=== PATIENT | female | born 1960 | race African-American/Black ===

== ENCOUNTER → 2021-05-29 | Outpatient (CLI) | payer OTHER ==
[2014-05-23 10:59] VITALS: BP 114/71
[~2021-05-29] MED LIST: METF500T16 PO; POLY500P14 MC; SIMV10TA15 PO; VALS1TAB3 PO
--- NOTE | 2021-05-29 10:05 | RAD ---
Examination: MRI of the right knee without contrast HISTORY: History of medial joint pain COMPARISON: None available TECHNIQUE: Multiplanar, multisequence MR imaging of the right knee without contrast FINDINGS: The anterior cruciate ligament, posterior cruciate ligament appears intact. The the medial meniscus a ppears intact. There is subtle blunting of the body of the lateral meniscus likely small degenerative radial tear. The medial collateral ligament is intact. Lateral collateral ligamentous complex includ ing the fibular collateral ligament, biceps femoris tendon, popliteus tendon appear intact There is mild superficial fraying of cartilage identified in the medial, lateral compartments.There i s deep fissuring of cartilage identified in the patellofemoral compartment. The medial, lateral retin aculum appears intact. The extensor mechanism appears intact. There is mild increased T2 signal ident ified in the Hoffa's fat pad deep to infrapatellar tendon likely secondary to impingement. Moderate j oint space loss identified in the medial, lateral and patellofemoral compartments. IMPRESSION: 1. Subtle blunting of the body of the lateral meniscus likely small degenerative radial tear. 2. Mild increased T2 signal identified in the Hoffa's fat pad deep to infrapatellar tendon likely se condary to impingement. 3. Grade II chondromalacia patellofemoral compartment. Grade I chondromalacia medial, lateral compar tments. Moderate tricompartmental degenerative disease. Electronically signed by: Cuco Harrison MD (05/29/2021 10:03 AM) [id number]
== END ==
LOC: MRI 09:11
PROVIDERS: ATTEND Orthopaedic Surgery
DX: M17.11 Unilateral primary osteoarthritis, right knee (principal); M22.41 Chondromalacia patellae, right knee; Z68.27 Body mass index [BMI] 27.0-27.9, adult
CPT/HCPCS: 73721

== ENCOUNTER → 2021-07-14 | Day surgery (SDC) | payer OTHER ==
[~2021-07-14] VITALS: Ht 160 cm; Wt 72.0 kg
[~2021-07-14] MED LIST changes: +ATOR20TA58 PO; +BUPIVACAINE MPF 0.5% 30 ML VIAL. ONE; +DEXAMETHASONE SOD PHOS 4 MG/ML VIAL ONE; +DEXTROSE 50% 25 GM / 50ML DISP.SYRIN. IV ONE; +DEXTROSE 50% 25 GM / 50ML DISP.SYRIN. IV PRN; +GLYCOPYRROLATE 1 MG/5 ML VIAL. ONE; +HYDR-2761 PO; +HYDROcodone/APAP 5/325MG 1 TAB TABLET ONE; +HYDROcodone/APAP 5/325MG 1 TAB TABLET PO ONE; +HYDROmorphone 2 MG/ML VIAL IVP PRN; +INSU100V31 SQ; +INSU100V37 SQ; +INSULIN LISPRO 100 UNIT/ML 3ML VIAL for OP,RR ONLY. SQ ONE; +INSULIN LISPRO 100 UNIT/ML 3ML VIAL for OP,RR ONLY. SQ PRN; +IV RINGERS,LACTATED 1000ML 1,000 ML IV SCH; +LIDOCAINE 2% PF 5 ML VIAL. ONE; +MEPERIDINE PF 25 MG/ML VIAL. ONE; +MORPHINE SULFATE 2 MG/ML INJ. IVP PRN; +PROCHLORPERAZINE 10 MG/2 ML VIAL. IVP PRN; +PROPOFOL 10 MG/ML (20ML) VIAL. IV ONE; +SEVOFLURANE 16 TO 30 MINUTES. IH ONE; +ceFAZolin SODIUM IV Push 1 GM VIAL. IVP PRN; +fentaNYL PF VIAL 100 MCG/2 ML VIAL IVP PRN; +fentaNYL PF VIAL 100 MCG/2 ML VIAL ONE
--- NOTE | 2021-07-14 09:32 | DISCH ---
DISCHARGE INSTRUCTIONS Condition on Discharge Condition on Discharge: Stable Activity After Discharge Activity Instructions for Disc: Progressive ambulation Weight Bearing Status after Di: As tolerated Diet after Discharge Diet after Discharge: Diabetic No Calorie Level Wound Incision Care Wound/Incision Care: Ice to area for comfort, Change dressing (Remove dressing in 2 days may then shower no soaking until sutures removed) Contacting the after DC Call your doctor for: Concerns you may have Follow-Up Follow up with: Dr. Mai or Satish 7 to 10 days DIAMOND MAI MD Jul 14, 2021 09:32
--- NOTE | 2021-07-14 11:52 | PDOC4 ---
Operative Note Operative Note Date of surgery: 07/14/2021 Preoperative diagnosis: Right knee lateral meniscus tear Postoperative diagnosis: Same Operative procedure: Right knee arthroscopy partial lateral meniscectomy and d ebridement of impinging tissue from intercondylar notch Surgeon: Sergei Assist: Danilo Gonzalez or first assist registered nurse Anesthesia: General Estimated blood loss: 5 cc Complications: None Operative indications: Patient is a 60-year-old female with pain and mechanical symptoms over the lateral aspect of her knee unresponsive to nonoperative management. MRI showed a lateral meniscus tear and we had talked through possibility of nonoperative versus operative intervention the structure and function of the meniscus and the rationale for addressing the mechanical aspects of the lateral knee pain. The fact that I cannot undo any degenerative change with the arthroscopic procedure and therefore she may have some ongoing symptoms that can be treated perhaps with injection medication or other measures. We also covered the possibility of infection nerve or blood vessel damage medical or other anesthetic complications among others all her questions were answered she wishes to proceed with surgical evaluation and treatment Operative text: Patient was identified procedure verified patient placed in the supine position on the operating table. After adequate amounts of general anesthesia were administered the right lower extremity was prepped and draped in standard sterile fashion with a thigh tourniquet. After timeout was performed patient procedure identified and verified the right lower extremity was exsanguinated by Esmarch bandage tourniquet inflated to 250 mmHg. A lateral portal was established medial portal established using spinal needle localization and the knee joint was systematically examined. She did have some isolated areas of grade III-IV chondromalacia in the trochlear groove not requiring debridement and all for the central facet of the patella but no maltracking noted. No loose bodies were noted in the gutters or suprapatellar pouch. Medial meniscus was probed and found to be intact as was the ACL and PCL. She did have some impinging tissue from the intercondylar notch area which was gently trimmed back to stable tissue without compromise of the ACL or PCL. She did have radial tearing of the body and posterior horn of the lateral me niscus which were trimmed back to stable tissue using the arthroscopic punch and shaver. Any cartilage fragments were evacuated and the knee again toward to ensure no loose cartilage fragments or other loose bodies. Portals and fat pad area were injected with half percent Marcaine with epinephrine portals were closed with nylon suture sterile compressive dressings were applied patient was returned to recovery room in stable condition having tolerated procedure well toes were noted be warm pink following deflation of the tourniquet. Danilo dia assist assisted in patient positioning prepping draping closure dressings DIAMOND SCOTT MD Jul 14, 2021 11:52
[2021-07-14 12:42] VITALS: BP 135/72
== END ==
LOC: SURG 07:45
PROVIDERS: ATTEND Orthopaedic Surgery
DX: S83.281A Other tear of lateral meniscus, current injury, right knee, initial encounter (principal); M94.261 Chondromalacia, right knee; I10 Essential (primary) hypertension; E11.9 Type 2 diabetes mellitus without complications; Z90.710 Acquired absence of both cervix and uterus; Z98.890 Other specified postprocedural states; X58.XXXA Exposure to other specified factors, initial encounter; Y93.89 Activity, other specified; Y92.89 Other specified places as the place of occurrence of the external cause
CPT/HCPCS: 29881; 82962; A4930; J0690; J1100; J1815; J2175; J2704; J3010; J3490; A4223